=== PATIENT | male | born 1980 | race Caucasian/White ===

== ENCOUNTER 2018-07-18 12:16 | Observation (INO) ==
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
[2018-05-06 11:45] LABS: Basophils # (auto) 0.07 K/uL (0-0.2); Basophils % (auto) 1.1 %; Eosinophils # (auto) 0.17 K/uL (0-0.5); Eosinophils % (auto) 2.6 %; Hematocrit (blood only) 46.6 % (42-52); Hemoglobin 15.9 g/dL (14.0-18.0); Immature Granulocytes # (auto) 0.01 K/uL (0.00-0.02); Immature Granulocytes % (auto) 0.2 %; Lymphocytes # (auto) 2.56 K/uL (1.2-3.4); Lymphocytes % (auto) 38.6 %; Mean Corpuscular Hgb Conc 34.1 g/dL (32-36); Mean Corpuscular Volume 90.1 fL (80-100); Mean Platelet Volume 11.6 fL (7.4-10.4); Monocytes # (auto) 0.55 K/uL (0.11-0.59); Monocytes % (auto) 8.3 %; Neutrophils # (auto) 3.28 K/uL (1.4-6.5); Neutrophils % (auto) 49.2 %; Platelet Count 238 K/uL (130-400); RDW Coefficient of Variation 12.8 % (11.5-14.5); RDW Standard Deviation 42.4 fL (36.4-46.3); Red Blood Count 5.17 M/uL (4.7-6.1); White Blood Count 6.64 K/uL (4.8-10.8)
[2018-05-06 11:53] LABS: BUN Creatinine Ratio 10.6 (10-20); Calcium 9.1 mg/dl (8.5-10.1); Creatinine Clr Calc Pharmacy 116.9 ml/min; Est GFR (African American) 108.9; Est GFR (Non-African American) 93.9; Potassium 4.8 mmol/L (3.5-5.1)
[2018-05-06 11:59] LABS: INR 1.1 (0.9-1.1); Partial Thromboplastin Ratio 1.1; Partial Thromboplastin Time 28.5 Seconds (21.0-31.0); Prothrombin Time 10.7 Seconds (9.0-12.0)
[2018-05-06 12:03] LABS: Appearance Urine Clear (Clear); Bilirubin Urine Negative (Negative); Blood Urine Negative (Negative); Color Urine Yellow; Glucose Urine UA Negative (Negative); Ketones Urine Negative (Negative); Leukocyte Esterase Urine Negative (Negative); Nitrite Urine Negative (Negative); Protein Urine Negative (Negative); Urobilinogen Urine Negative (Negative)
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
[~2018-07-18 12:16] MED LIST: BUPIVACAINE 0.5 % 5 MG/1 ML PF 10ML VIAL ONE; CEFAZOLIN 2000MG 2,000 MG/15 ML SYR IV SCH; LACTATED RINGER'S 1,000 ML IV SCH; LR 15ML/HR IV SCH; ROPIVACAINE 0.5% 5 MG/ML 30 ML VIAL ONE
[2018-07-18] MEDS ORDERED: ONDANSETRON INJ 2 MG/ML 2 ML VIAL ONE (12:34)
[2018-07-18] MEDS ORDERED: DEXAMETHASONE SOD INJ 4 MG/ML VIAL ONE ×2 (12:34→15:02)
[2018-07-18] MEDS ORDERED: PROPOFOL IV EMULSION 10 MG/ML 20 ML VIAL IV ONE (12:34)
[2018-07-18] MEDS ORDERED: LIDOCAINE HCL 2% 2 ML VIAL/AMP(20MG/ML) INFIL ONE (12:34)
[2018-07-18] MEDS ORDERED: MIDAZOLAM HCL 1 MG/ML 2ML VIAL ONE ×2 (12:35)
[2018-07-18] MEDS ORDERED: fentaNYL citrate 100 MCG/2 ML VIAL ONE ×6 (12:35→20:15)
--- NOTE | 2018-07-18 14:18 | History & Physical Bridge Note ---
Date of Service July 18, 2018 History & Physical Bridge Note I have examined the patient, reviewed the History & Physical and in the interval since the performance of the History & Physical I have noted the following changes of clinical significance: no changes noted
[2018-07-18] MEDS ORDERED: SUCCINYLCHOLINE CHLORIDE 20 MG/ML 10 ML VIAL ONE (15:47)
[2018-07-18] MEDS ORDERED: HYDROmorphone INJ 2 MG/ML SYR/VIAL ONE (16:30)
[2018-07-18] MEDS ORDERED: ONDANSETRON INJ 2 MG/ML 2 ML VIAL IV PRN ×2 (19:22→20:05)
[2018-07-18] MEDS ORDERED: MoRPHine SULFATE 4 MG/ML 1 ML CARP\\VIAL IV PRN (19:22)
[2018-07-18] MEDS ORDERED: MAGNESIUM HYDROXIDE SUSP 30 ML UDC PO PRN (19:22)
[2018-07-18] MEDS ORDERED: BISACODYL 10 MG SUPP PR PRN (19:22)
--- NOTE | 2018-07-18 19:55 | Operative Report ---
Post Operative Report Pre & Post Diagnosis Operation Date: 07/18/18 14:30 Pre-Op Diagnosis: LEFT KNEE MEDIAL & LATERAL MENISCUS TEARS, ACL and MCL TEAR Post-Op Diagnosis: LEFT KNEE MEDIAL & LATERAL MENISCUS TEARS, ACL and MCL TEAR Procedure Operation Date: 07/18/18 14:30 Actual Procedures p Left Knee Arthroscopy with Partial Medial and Lateral Menisectomies, Anterior Cruciate Ligament Repair with Allograft, Possible Medial Collateral Ligament Reconstruction with Allograft; Removal of Hardware - Tibia - Dagoberto Hu MD Surgeon Dagoberto Hu MD Estimated Blood Loss 100 I attest to the content of the Intraoperative Record and any orders documented therein. Any exceptions are noted below.
[2018-07-18] MEDS ORDERED: HYDROmorphone INJ 1 MG/ML SYRINGE IV PRN (20:05)
[2018-07-18] MEDS ORDERED: ATROPINE SULFATE 0.1 MG/ML 10ML SYR IV PRN (20:05)
[2018-07-18] MEDS ORDERED: ePHEDrine sulfate 50 MG/ML AMP IV PRN (20:05)
[2018-07-18] MEDS: fentaNYL citrate 100 MCG/2 ML VIAL IV PRN ×4 (20:08→20:21)
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
--- NOTE | 2018-07-18 20:53 | Anesthesiology Progress Note ---
Date of Service July 18, 2018 Anesthesia Post Procedure Vital Signs Vital Signs: Temp Pulse Pulse Resp BP BP Pulse Ox 07/18/18 20:45 97.2 F L 91 H 16 138/88 95 07/18/18 20:35 97.2 F L 92 H 16 145/89 H 95 07/18/18 20:25 87 16 145/98 H 95 07/18/18 20:15 86 16 147/96 H 98 07/18/18 20:05 97 H 16 169/98 H 98 07/18/18 19:55 97.9 F 117 H 16 158/85 H 98 07/18/18 12:41 98.4 F 69 18 139/93 98 Pain Intensity Left Knee: Pain Intensity: 6 Notes Mental Status: alert / awake / arousable and participated in evaluation Patient Amnestic to Procedure: Yes Nausea / Vomiting: adequately controlled Pain: adequately controlled Airway Patency, RR, SpO2: stable & adequate BP & HR: stable & adequate Hydration State: stable & adequate Anesthetic Complications: no major complications apparent and Pt Satisfied with anesthetic care
--- NOTE | 2018-07-18 21:25 | Fluoroscopy Report ---
FL tibia/fibula LT 2V CLINICAL HISTORY: REMOVAL OF HARDWARE LEFT TIBIA COMPARISON STUDY: None FLUOROSCOPY TIME: 65 seconds NUMBER OF FLUOROSCOPIC IMAGES: 2 FINDINGS: Image intensifier was utilized for partial hardware removal. IMPRESSION: Image intensifier utilization for partial hardware removal The above report was generated using voice recognition software. It may contain grammatical, syntax or spelling errors. Electronically signed by: Dinh Mccann M.D. 07/18/2018 9:24 PM
[2018-07-18] MEDS: DOCUSATE SODIUM 100 MG CAP PO SCH (22:07)
[2018-07-18] MEDS: POTASSIUM CHLORIDE 10 MEQ in SODIUM CHLORIDE 0.9% 1000ML 1,000 ML IV SCH (22:08)
[2018-07-18] MEDS: ACETAMINOPHEN 500 MG TAB PO SCH (22:09)
[2018-07-19] MEDS: OXYCODONE HCL IR 5 MG TAB (IMMEDIATE RELEASE) PO PRN ×2 (02:08→11:32)
[2018-07-19] MEDS: ACETAMINOPHEN 500 MG TAB PO SCH (05:45)
[2018-07-19 07:09] LABS: Basophils # (auto) 0.01 K/uL (0-0.2); Basophils % (auto) 0.1 %; Hematocrit (blood only) 37.4 % (42-52); Hemoglobin 12.9 g/dL (14.0-18.0); Immature Granulocytes # (auto) 0.05 K/uL (0.00-0.02); Immature Granulocytes % (auto) 0.3 %; Lymphocytes # (auto) 1.63 K/uL (1.2-3.4); Mean Corpuscular Hgb Conc 34.5 g/dL (32-36); Mean Corpuscular Volume 88.4 fL (80-100); Mean Platelet Volume 11.1 fL (7.4-10.4); Monocytes # (auto) 0.65 K/uL (0.11-0.59); Monocytes % (auto) 4.4 %; Neutrophils # (auto) 12.43 K/uL (1.4-6.5); Neutrophils % (auto) 84.2 %; Platelet Count 275 K/uL (130-400); RDW Coefficient of Variation 13.3 % (11.5-14.5); RDW Standard Deviation 42.9 fL (36.4-46.3); Red Blood Count 4.23 M/uL (4.7-6.1); White Blood Count 14.77 K/uL (4.8-10.8)
[2018-07-19] MEDS: POTASSIUM CHLORIDE 10 MEQ in SODIUM CHLORIDE 0.9% 1000ML 1,000 ML IV SCH (07:39)
[2018-07-19] MEDS: DOCUSATE SODIUM 100 MG CAP PO SCH (07:40)
--- NOTE | 2018-07-19 07:41 | Orthopedic Progress Note ---
Date of Service July 19, 2018 Assessment & Plan (1) Rupture of anterior cruciate ligament of left knee: POD#1 left knee arthroscopic PMM, PLM, ACL reconstruction and open MCL reconstruction, removal of hardware -Pain mangement -DVT prophylaxis-Xarelto -PT/OT -D/C planning-home today (2) Tear of MCL (medial collateral ligament) of knee: Subjective Patient doing well this morning, pain is controlled with pain medication. No other complaints Physical Exam Vital Signs (Past 24 Hours): Last Vital Signs Temp 37.2 C 07/19/18 07:32 Pulse 78 07/19/18 07:32 Resp 19 07/19/18 07:32 BP 126/73 07/19/18 07:32 Pulse Ox 96 07/19/18 07:32 Physical Exam: Dressing c/d/i, immobilizer in place. No calf tenderness. Toes mobile. Sensation and N/V status intact.
[2018-07-19 07:47] LABS: Albumin Level 2.9 gm/dl (3.4-5.0); Bilirubin Direct 0.2 mg/dl (0-0.2); Bilirubin,Total 0.7 mg/dl (0.2-1)
--- NOTE | 2018-07-19 08:30 | Anesthesiology Progress Note ---
Date of Service July 19, 2018 Anesthesia Post Procedure Vital Signs Vital Signs: Temp Pulse Pulse Resp BP BP Pulse Ox 07/19/18 07:32 37.2 C 78 19 126/73 96 07/19/18 03:47 37.4 C 94 H 18 110/59 L 96 07/19/18 00:00 37.1 C 89 20 138/76 93 07/18/18 23:03 37.1 C 95 H 18 130/79 95 07/18/18 21:54 36.6 C 95 H 15 142/97 H 99 07/18/18 21:35 88 16 138/92 96 07/18/18 21:10 37.3 C 87 18 148/84 H 96 07/18/18 20:45 36.2 C L 91 H 16 138/88 95 07/18/18 20:35 36.2 C L 92 H 16 145/89 H 95 07/18/18 20:25 87 16 145/98 H 95 07/18/18 20:15 86 16 147/96 H 98 07/18/18 20:05 97 H 16 169/98 H 98 07/18/18 19:55 36.6 C 117 H 16 158/85 H 98 07/18/18 12:41 36.9 C 69 18 139/93 98 Pain Intensity Left Knee: Pain Intensity: 2 Notes Mental Status: alert / awake / arousable Patient Amnestic to Procedure: Yes Nausea / Vomiting: adequately controlled Pain: adequately controlled Airway Patency, RR, SpO2: stable & adequate BP & HR: stable & adequate Hydration State: stable & adequate Anesthetic Complications: no major complications apparent and Pt Satisfied with anesthetic care
[2018-07-19] MEDS ORDERED: RIVAROXABAN 10 MG TABLET PO SCH (09:00)
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
== END 2018-07-19 13:27 | disposition home or self-care (01) ==
LOC: 3N 12:16 → ASU 12:16
DX: S83.512A Sprain of anterior cruciate ligament of left knee, initial encounter; S83.242A Other tear of medial meniscus, current injury, left knee, initial encounter; S83.282A Other tear of lateral meniscus, current injury, left knee, initial encounter; Z87.891 Personal history of nicotine dependence; X58.XXXA Exposure to other specified factors, initial encounter; F12.10 Cannabis abuse, uncomplicated; Z86.718 Personal history of other venous thrombosis and embolism